=== PATIENT | male | born 1955 | race Caucasian/White ===

== ENCOUNTER 2020-07-19 07:00 | Outpatient (CLI) | payer MEDICARE, OTHER | END 2020-07-19 23:59 | disposition home or self-care (01) | LOC: COV 07:00 | PROVIDERS: ATTEND Surgery | DX: Z01.812 Encounter for preprocedural laboratory examination (principal); A63.0 Anogenital (venereal) warts; Z20.822 Contact with and (suspected) exposure to COVID-19 ==

== ENCOUNTER 2020-07-22 09:17 | Day surgery (SDC) | payer MEDICARE, OTHER ==
[2020-07-22] MEDS ORDERED: LACTATED RINGERS 1,000 ML IV ONE ×2 (09:50→11:52)
[2020-07-22] MEDS ORDERED: CIPROFLOXACIN 400 MG/200 ML 400 MG/200 ML BAG IV ONE (09:52)
[2020-07-22] MEDS ORDERED: metroNIDAZOLE 500 MG/100 ML 500 MG/100 ML BAG ONE (09:52)
[2020-07-22] MEDS ORDERED: LIDOCAINE 2%-EPI 1:100000 20 ML MDV ONE (09:53)
[2020-07-22] MEDS ORDERED: BUPIVACAINE 0.5% PF 30 ML VIAL ONE (09:53)
--- NOTE | 2020-07-22 10:05 | ANESTHESIA ---
Pre-Anesthesia VS, & Labs - Diagnosis anal condyloma - Procedure excision anal condyloma Vital Signs: Temp Pulse Resp BP Pulse Ox 36.2 C L 63 16 143/86 H 97 07/22/20 09:30 07/22/20 09:30 07/22/20 09:30 07/22/20 09:30 07/22/20 09:30 Height: 5 ft 7 in Weight (kg): 86.7 kg Body Mass Index: 29.9 BMI Classification: Overweight - NPO >8 hours Home Medications and Allergies Home Medications: Ambulatory Orders Naproxen Sodium [Aleve] 220 mg PO PRN PRN 07/16/20 Omeprazole 20 mg PO DAILY 07/16/20 Naproxen Sodium [Aleve] 220 mg PO PRN PRN 07/16/20 Omeprazole 20 mg PO DAILY 07/16/20 Allergies/Adverse Reactions: Allergies Allergy/AdvReac Type Severity Reaction Status Date / Time No Known Drug Allergies Allergy Verified 07/16/20 10:19 Anes History & Medical History - Anesthetic History Anesthesia Complications: reports: No previous complications - Medical History Cardiovascular: reports: Hypertension, High cholesterol Pulmonary: reports: None Gastrointestinal: reports: GERD, Hiatal hernia, Hepatitis Urinary: reports: None Musculoskeletal: reports: None Endocrine/Autoimmune: reports: None Skin: reports: None Smoking Status: Never smoker Psychosocial: reports: Alcohol - Surgical History General: reports: Colonoscopy, Other Eyes Ears Nose Throat (EENT): reports: Tonsil/Adenoidectomy Exam General: Alert Dental: WNL Mouth Opening: Greater than 4 Fingerbreadths Neck Mobility: Normal Mallampati classification: II Thyromental Distance: greater than 6 cm Respiratory: Lungs clear Cardiovascular: Regular rate Plan Anesthesia Type: General Consent for Procedure(s) Verified and Reviewed: Yes Code Status: Attempt Resuscitation ASA classification: 2-Mild systemic disease Is this case an emergency?: No
[2020-07-22] MEDS ORDERED: BUPIVACAINE 0.5% PF 30 ML VIAL INFIL ONE ×2 (10:36→11:25)
[2020-07-22] MEDS ORDERED: LIDOCAINE 2%-EPI 1:100000 20 ML MDV SUBQ ONE ×2 (10:37→11:25)
[2020-07-22] MEDS ORDERED: fentaNYL 100 MCG/2 ML VIAL ONE (10:39)
[2020-07-22] MEDS ORDERED: MIDAZOLAM 2 MG/2 ML VIAL ONE (10:39)
[2020-07-22] MEDS ORDERED: LIDOCAINE-MPF 2% 5 ML VIAL ONE (10:42)
[2020-07-22] MEDS ORDERED: PROPOFOL 200 MG/20 ML VIAL IVP ONE (10:42)
[2020-07-22] MEDS ORDERED: BACITRACIN ZINC OINT 14 GM TOP ONE (11:28)
[2020-07-22] MEDS ORDERED: MORPHINE 2 MG/ML CARPUJECT IVP PRN (11:32)
[2020-07-22] MEDS ORDERED: fentaNYL 100 MCG/2 ML VIAL IVP PRN (11:32)
[2020-07-22] MEDS ORDERED: METOCLOPRAMIDE 10 MG/2 ML VIAL IVP PRN (11:32)
[2020-07-22] MEDS ORDERED: ATROPINE ABBOJECT 1 MG/10 ML SYRINGE IVP PRN (11:32)
[2020-07-22] MEDS ORDERED: NALOXONE 0.4 MG/ML VIAL IVP PRN (11:32)
[2020-07-22] MEDS ORDERED: ONDANSETRON 4 MG/2 ML VIAL IVP PRN ×2 (11:32→11:45)
[2020-07-22] MEDS ORDERED: HYDROmorphone 0.5 MG/0.5 ML SYRINGE IVP PRN (11:32)
[2020-07-22] MEDS ORDERED: ePHEDrine 50 MG/ML VIAL IVP PRN (11:32)
[2020-07-22] MEDS ORDERED: oxyCODONE 5 MG TABLET PO PRN (11:45)
[2020-07-22] MEDS ORDERED: BACITRACIN ZINC OINT 1 PACKET TOP ONE (11:50)
--- NOTE | 2020-07-22 11:57 | OPERATIVE REPORT ---
Operative Report - General Procedure Date: 07/22/20 Planned Procedure: 1. Examined anesthesia 2. Excision fulguration of perianal condyloma 3. Transanal excision of anal/intra-anal condyloma 4. Rigid proctoscopy 5. Pudendal block Pre-Op Diagnosis: Hepatitis C; perianal condyloma; levator spasm Procedure Performed: 1. Examined anesthesia 2. Excision fulguration of perianal condyloma 3. Transanal excision of anal/intra-anal condyloma 4. Rigid proctoscopy 5. Pudendal block Post Op Diagnosis: Same - Procedure Note Primary Surgeon: Prashant Secondary Surgeon: Brigette Anesthesia Provider: Catrina Anesthesia Technique: General LMA, Local Pathology: 1. Right posterior perianal condyloma 2. Left posterior intra-anal condyloma 3. Posterior perianal condyloma Estimated Blood Loss (mL): 2 Drain/Tube Type: Other (Anal packing with 2 sheets of Surgicel wrapped about a single sheet of Gelfoam constructed into a tampon for anal packing.) Indications: See clinic note. Findings: 1. Perianal condyloma 2. Intrarenal condyloma as per above 3. Rectum and distal rectal sigmoid cleared proctoscopic Juan Manuel 4. Hemostatic at the conclusion of this case 5. Internal hemorrhoids Complications: None - Other Other Information/Narrative: Pending final report.
[2020-07-22] MEDS ORDERED: LACTATED RINGERS 1,000 ML IV SCH (12:00)
[2020-07-22 12:39] VITALS: BP 113/75
--- NOTE | 2020-07-22 14:47 | ANESTHESIA POST OP EVALUATION ---
Anesthesia Post Eval - Post Anesthesia Eval Vitals: Last Vital Signs Temp 36.4 C L 07/22/20 12:38 Pulse 63 07/22/20 12:38 Resp 14 07/22/20 12:38 BP 113/75 07/22/20 12:38 Pulse Ox 95 07/22/20 12:38 CV Function Including HR & BP: positive: Stable Pain Control: positive: Satisfactory Nausea & Vomiting: positive: Negative Mental Status: positive: Baseline Respiratory Status: Airway Patent Hydration Status: Satisfactory Anesthesia Complications: positive: None
== END 2020-07-22 09:18 | disposition home or self-care (01) ==
LOC: SDS 09:17
PROVIDERS: ATTEND Surgery
PROC: 0DBQXZZ Excision of Anus, External Approach (ICD-10-PCS; 2020-07-22)
PROC: 0D5QXZZ Destruction of Anus, External Approach (ICD-10-PCS; 2020-07-22)
PROC: 0DJD8ZZ Inspection of Lower Intestinal Tract, Via Natural or Artificial Opening Endoscopic (ICD-10-PCS; principal; 2020-07-22 10:30)
DX: A63.0 Anogenital (venereal) warts (principal); L29.0 Pruritus ani; K64.8 Other hemorrhoids; I10 Essential (primary) hypertension; K21.9 Gastro-esophageal reflux disease without esophagitis; E66.3 Overweight; Z68.29 Body mass index [BMI] 29.0-29.9, adult
CPT/HCPCS: 45990; 46910; 46922; A9270; J7120

== ENCOUNTER 2021-01-07 09:01 | Outpatient (CLI) | payer MEDICARE, OTHER ==
[2021-01-07 11:47] LABS: BASOPHILS # (AUTO) 0.1 10^3/uL (0.0-0.1); BASOPHILS % (AUTO) 1.2 %; EOSINOPHILS # (AUTO) 0.2 10^3/uL (0.0-0.7); HGB - HEMOGLOBIN 15.8 g/dL (14.0-18.0); LYMPHOCYTES # (AUTO) 1.9 10^3/uL (1.5-3.5); LYMPHOCYTES % (AUTO) 36.6 %; MEAN CORPUSCULAR HEMOGLOBIN 31.7 pg (27.0-31.0); MEAN CORPUSCULAR HGB CONC 32.9 g/dL (32.0-36.0); MEAN CORPUSCULAR VOLUME 96.4 fL (80.0-94.0); MEAN PLATELET VOLUME 11.1 fL (7.4-11.4); MONOCYTES # (AUTO) 0.4 10^3/uL (0.0-1.0); MONOCYTES % (AUTO) 7.9 %; NEUTROPHILS # (AUTO) 2.5 10^3/uL (1.5-6.6); NEUTROPHILS % (AUTO) 50.3 %; PLT - PLATELET COUNT 255 10^3/uL (130-450); RED BLOOD COUNT 4.98 10^6/uL (4.70-6.10); RED CELL DISTRIBUTION WIDTH 12.7 % (12.0-15.0); WHITE BLOOD COUNT 5.1 x10^3/uL (4.8-10.8)
[2021-01-07 12:25] LABS: ALBUMIN 4.4 g/dL (3.2-5.5); ALBUMIN/GLOBULIN RATIO 1.4 (1.0-2.2); ALKALINE PHOSPHATASE 61 IU/L (42-121); ALT ALANINE AMINOTRANSFERASE 34 IU/L (10-60); AST ASPARTATE AMINOTRANSFERASE 31 IU/L (10-42); BILIRUBIN,TOTAL 1.1 mg/dL (0.2-1.0); BUN - BLOOD UREA NITROGEN 22 mg/dL (6-20); CALCIUM 9.4 mg/dL (8.5-10.3); CARBON DIOXIDE - CO2 26 mmol/L (21-32); CHLORIDE 103 mmol/L (101-111); CHOL/HDL RATIO 4.3 (<5.0); CHOLESTEROL 271 mg/dL; CREATININE 0.9 mg/dL (0.6-1.2); GFR - MDRD 85 (>89); GLUCOSE 111 mg/dL (70-100); HDL CHOLESTEROL 63 mg/dL; LDL CHOLESTEROL,CALCULATED 178 mg/dL; LDL/HDL RATIO 2.8 (<3.6); POTASSIUM 4.3 mmol/L (3.5-5.0); SODIUM 139 mmol/L (135-145); TOTAL PROTEIN 7.5 g/dL (6.7-8.2); TRIGLYCERIDES 149 mg/dL; VLDL CHOLESTEROL 30 mg/dL
[2021-01-07 12:36] LABS: THYROID STIMULATING HORMONE 1.52 uIU/mL (0.34-5.60)
== END 2021-01-07 23:59 | disposition home or self-care (01) ==
LOC: LAB.WCP 09:01
PROVIDERS: ATTEND Family Medicine
DX: K21.00 Gastro-esophageal reflux disease with esophagitis, without bleeding (principal); D12.6 Benign neoplasm of colon, unspecified; Z12.5 Encounter for screening for malignant neoplasm of prostate; B19.20 Unspecified viral hepatitis C without hepatic coma
CPT/HCPCS: 36415; 80053; 80061; 84443; 85025; G0103; 83721; 84153

== ENCOUNTER 2021-03-25 12:35 | Outpatient (CLI) | payer MEDICARE, OTHER | END 2021-03-25 12:36 | disposition home or self-care (01) | LOC: LAB 12:35 | DX: R97.20 Elevated prostate specific antigen [PSA] (principal) | CPT/HCPCS: 36415; 84153 ==

== ENCOUNTER 2022-05-18 11:32 | Emergency (ER) | payer MEDICARE, OTHER ==
[2022-05-18 11:43] VITALS: BP 185/99
--- NOTE | 2022-05-18 12:16 | ED Physician Documentation ---
History of Present Illness - Stated complaint Stated Complaint: MALE GI - Chief complaint Chief Complaint: General - History obtained from History obtained from: Patient - History of Present Illness Timing: How many days ago (3) Pain level max: 0 Pain level now: 0 - Additonal information Additional information: 67-year-old male presents to the emergency department complaining of penile swelling. He states that this started after a radical prostatectomy on May 12 at the [facility]. He has a catheter in place. He has an appointment with his urologist tomorrow. He contacted his urologist office today who said that if he was concerned he could come to the emergency department. No fevers. No chills. No discharge. Nothing makes it better or worse. Mildly itchy. Review of Systems Constitutional: denies: Chills Respiratory: denies: Cough GI: denies: Nausea, Vomiting, Diarrhea Skin: denies: Rash PD PAST MEDICAL HISTORY - Past Medical History Cardiovascular: Hypertension, High cholesterol Respiratory: None Endocrine/Autoimmune: None GI: GERD, Hiatal hernia, Hepatitis : None HEENT: Chronic vision loss Psych: None Musculoskeletal: None Derm: None - Past Surgical History General: Colonoscopy, Other HEENT: Tonsil/Adenoidectomy - Present Medications Home Medications: Ambulatory Orders Medication Instructions Recorded Confirmed Naproxen Sodium [Aleve] 220 mg PO PRN PRN 07/16/20 07/16/20 Omeprazole 20 mg PO DAILY 07/16/20 07/16/20 traMADol [Ultram] 50 mg PO Q4-6H PRN #24 tablet 07/22/20 - Allergies Allergies/Adverse Reactions: Allergies Allergy/AdvReac Type Severity Reaction Status Date / Time No Known Drug Allergies Allergy Verified 07/16/20 10:19 - Social History Smoking Status: Never smoker PD ED PE NORMAL - Vitals Vital signs reviewed: Yes - General General: Alert and oriented X 3, No acute distress - Abdomen Abdomen: Soft, Non tender, Non distended - Male Male : Other (Swelling to the penile shaft, appears edematous. No erythema. No drainage. No crepitus.) - Derm Derm: Warm and dry - Neuro Neuro: Alert and oriented X 3 - Psych Psych: Normal mood, Normal affect Results - Vitals Vitals: Vital Signs - 24 hr 05/18/22 11:40 Temperature 37.1 C Heart Rate 84 Respiratory 18 Rate Blood Pressure 185/99 H O2 Saturation 98 Oxygen O2 Source Room air PD Medical Decision Making - ED course Complexity details: considered differential, d/w patient ED course: Patient with what appears to be penile swelling status post radical prostatectomy. No indication of infection. Does not appear consistent with gangrene or cellulitis. No indication for imaging at this time. We will have him follow-up with his urologist tomorrow. Likely normal swelling status post prostatectomy. Patient counseled regarding signs and symptoms for which I believe and urgent re-evaluation would be necessary. Patient with good understanding of and agreement to plan and is comfortable going home at this [facility] This document was made in part using voice recognition software. While efforts are made to proofread this document, sound alike and grammatical errors may occur. Departure - Departure Disposition: 01 Home, Self Care Clinical Impression: Penile swelling Condition: Good Instructions: Prostatectomy Radical Dc Follow-Up: César Rodriguez MD [Primary Care Provider] - Within 1 week Comments: Please follow-up with your urologist tomorrow as scheduled. This edema is likely related to the radical prostatectomy and will usually resolve on its own. It does not appear infected. We do not need to add additional antibiotics at this time. Please return if you worsen. Discharge Date/Time: 05/18/22 12:21
== END 2022-05-18 12:21 | disposition home or self-care (01) ==
LOC: ED 11:32
DX: N48.29 Other inflammatory disorders of penis (principal); Z90.79 Acquired absence of other genital organ(s); I10 Essential (primary) hypertension
CPT/HCPCS: 99281

== ENCOUNTER 2022-10-10 11:50 | Outpatient (CLI) | payer MEDICARE, OTHER ==
--- NOTE | 2022-10-10 16:55 | Ultrasound Report ---
PROCEDURE: Head or Neck Soft Tissue INDICATIONS: ABN EXTRACARDIAC TRACER UPTAKE TECHNIQUE: Real-time scanning was performed of the thyroid gland, with image documentation. COMPARISON: None FINDINGS: Right: Thyroid lobe measures 6.4 x 3.3 x 3.1 cm, and is homogeneous in echotexture. Left: Thyroid lobe measures 3.4 x 1.7 x 1.6 cm, and is homogenous in echotexture. Isthmus: Size mm thick. Nodule number: 1 Location: Right mid thyroid lobe Size: 4.4 x 3.7 x 3.9 cm. Composition: Mixed cystic and solid. Echogenicity: Hypoechoic. Shape: wider than tall. Margins: Lobulated. Echogenic foci: None (0 points). Total points: 5 ACR TI-RADS category: 4. Nodule number: 2 Location: Right superior Size: 0.9 x 0.6 x 0.8 cm. Composition: Spongiform. Echogenicity: Hypoechoic. Shape: wider than tall. Margins: Smooth (0 points). Echogenic foci: None (0 points). Total points: 4 ACR TI-RADS category: 4. IMPRESSION: 1. Right laminectomy. There is a large complex cystic and solid mass in the right thyroid. Consider f ine-needle aspiration biopsy. The smaller solid right thyroid nodule can be followed by ultrasound. P lease see enclosed follow-up recommendation. ACR TI-RADS definitions and recommendations: TI-RADS 1 (benign): 0 points. FNA not needed. TI-RADS 2 (not suspicious): 2 points. FNA not needed. TI-RADS 3 (mildly suspicious): 3 points. "FNA if 2.5 cm or larger, follow up if 1.5 cm or larger (at 1, 3, and 5 years). TI-RADS 4 (moderately suspicious): 4-6 points. "FNA if 1.5 cm or larger, follow up if 1 cm or larger (at 1, 2, 3, and 5 years). TI-RADS 5 (highly suspicious): 7 points or more. "FNA if 1 cm or larger, follow up if 0.5 cm or larger (every year for 5 years). Reviewed by: José Miguel Mcknight MD on 10/10/2022 4:54 PM PDT Approved by: José Miguel Mcknight MD on 10/10/2022 4:54 PM PDT Station ID: [id number]
== END 2022-10-10 11:51 | disposition home or self-care (01) ==
LOC: DI 11:50
PROVIDERS: ATTEND Family Medicine
DX: E04.2 Nontoxic multinodular goiter (principal)

== ENCOUNTER 2022-12-13 09:47 | Outpatient (CLI) | payer MEDICARE, OTHER ==
[2022-12-13] MEDS ORDERED: LIDOCAINE-MPF 1% 5 ML VIAL ONE (10:16)
--- NOTE | 2022-12-13 11:49 | Ultrasound Report ---
PROCEDURE: FNA Bx w/US Gdn 1st Les INDICATIONS: ABN EXTRACARDIAC TRACER TECHNIQUE: The indications, alternatives, benefits, risks, and complications of the procedure were explained to the patient. Written informed consent was obtained and placed in the chart. The area of interest wa s examined sonographically and a site was chosen for ultrasound guided percutaneous sampling. The sk in was prepared and draped in the usual fashion, and anesthetized with 1% lidocaine infiltrated from the skin down to the lesion. Multiple passes were then performed, with contents emptied into an appr [facility] pathology specimen container. A bandage was applied to the area of access at completion of t he study. COMPARISON: Ultrasound thyroid, 10/10/2022. FINDINGS: Location(s) of lesion(s) sampled: Right mid thyroid cystic and solid mass [place]: 25 gauge needles x 7; 22 gauge x 1. Number of passes: 7 Medications: 1% lidocaine for local anaesthesia. Complications: None. IMPRESSION: Successful ultrasound-guided right thyroid mass fine needle aspiration, with cytology results pending . Reviewed by: José Miguel Mcknight MD on 12/13/2022 11:47 AM PDT Approved by: José Miguel Mcknight MD on 12/13/2022 11:47 AM PDT Station ID: [id number]
[2022-12-13] MEDS ORDERED: LIDOCAINE-MPF 1% 5 ML VIAL TD ONE (16:12)
== END 2022-12-13 09:48 | disposition home or self-care (01) ==
LOC: DI 09:47
PROVIDERS: ATTEND Family Medicine
DX: R93.89 Abnormal findings on diagnostic imaging of other specified body structures (principal); E04.1 Nontoxic single thyroid nodule
CPT/HCPCS: 10005

== ENCOUNTER 2023-05-07 14:40 | Outpatient (CLI) | payer MEDICARE, OTHER | END 2023-05-07 14:41 | disposition home or self-care (01) | LOC: LAB 14:40 | PROVIDERS: ATTEND Urology | DX: C61 Malignant neoplasm of prostate (principal) | CPT/HCPCS: 36415; 84153 ==

== ENCOUNTER 2023-06-27 09:25 | Outpatient (CLI) | payer MEDICARE, OTHER ==
[2023-06-27 09:37] LABS: BASOPHILS # (AUTO) 0.1 10^3/uL (0.0-0.1); BASOPHILS % (AUTO) 1.1 %; EOSINOPHILS # (AUTO) 0.2 10^3/uL (0.0-0.7); EOSINOPHILS % (AUTO) 3.4 %; HCT - HEMATOCRIT 46.3 % (42.0-52.0); HGB - HEMOGLOBIN 15.7 g/dL (14.0-18.0); MEAN CORPUSCULAR HEMOGLOBIN 31.4 pg (27.0-31.0); MEAN CORPUSCULAR HGB CONC 33.9 g/dL (32.0-36.0); MEAN CORPUSCULAR VOLUME 92.6 fL (80.0-94.0); MEAN PLATELET VOLUME 10.2 fL (7.4-11.4); MONOCYTES # (AUTO) 0.5 10^3/uL (0.0-1.0); MONOCYTES % (AUTO) 8.6 %; NEUTROPHILS # (AUTO) 2.5 10^3/uL (1.5-6.6); NEUTROPHILS % (AUTO) 47.8 %; PLT - PLATELET COUNT 230 10^3/uL (130-450); WHITE BLOOD COUNT 5.2 x10^3/uL (4.8-10.8)
[2023-06-27 09:52] LABS: ALBUMIN 4.2 g/dL (3.2-5.5); ALBUMIN/GLOBULIN RATIO 1.4 (1.0-2.2); ALKALINE PHOSPHATASE 65 IU/L (42-121); ALT ALANINE AMINOTRANSFERASE 22 IU/L (10-60); AST ASPARTATE AMINOTRANSFERASE 22 IU/L (10-42); BILIRUBIN,TOTAL 0.7 mg/dL (0.2-1.0); BUN - BLOOD UREA NITROGEN 20 mg/dL (6-20); CALCIUM 9.7 mg/dL (8.5-10.3); CARBON DIOXIDE - CO2 31 mmol/L (21-32); CHLORIDE 101 mmol/L (101-111); CHOL/HDL RATIO 4.3 (<5.0); CHOLESTEROL 252 mg/dL; CREATININE 1.1 mg/dL (0.6-1.3); GFR - MDRD 67 (>89); GLUCOSE 108 mg/dL (74-104); HDL CHOLESTEROL 59 mg/dL; LDL CHOLESTEROL,CALCULATED 157 mg/dL; LDL/HDL RATIO 2.7 (<3.6); SODIUM 137 mmol/L (135-145); TOTAL PROTEIN 7.2 g/dL (6.4-8.9); TRIGLYCERIDES 181 mg/dL (48-352); VLDL CHOLESTEROL 36 mg/dL
[2023-06-27 10:06] LABS: THYROID STIMULATING HORMONE 1.15 uIU/mL (0.34-5.60)
== END 2023-06-27 09:26 | disposition home or self-care (01) ==
LOC: LAB 09:25
PROVIDERS: ATTEND Family Medicine
DX: E04.1 Nontoxic single thyroid nodule (principal); K21.9 Gastro-esophageal reflux disease without esophagitis; C61 Malignant neoplasm of prostate; B19.20 Unspecified viral hepatitis C without hepatic coma
CPT/HCPCS: 36415; 80053; 80061; 83721; 84443; 85025